=== PATIENT | female | born 1935 | race Caucasian/White ===

== ENCOUNTER 2017-10-22 21:06 | Inpatient (IN) | payer OTHER ==
[~2017-10-22] VITALS: Ht 152.4 cm; Wt 40.8 kg
[2017-10-22] MEDS ORDERED: PRAVASTATIN SOD10 MG (21:19)
== END 2017-11-09 16:56 | disposition home health service (06) | DRG 463 ==
LOC: ER 21:06 → MEDJ 10-23 12:22 → SEC-K 10-23 12:22 → MEDJ 10-23 14:19 → SURH 10-25 09:34 → MEDJ 10-25 14:51
PROC: CP1Z1ZZ Planar Nuclear Medicine Imaging of Musculoskeletal System, All using Technetium 99m (Tc-99m) (ICD-10-PCS; 2017-10-23)
PROC: 3E0F7GC Introduction of Other Therapeutic Substance into Respiratory Tract, Via Natural or Artificial Opening (ICD-10-PCS; 2017-10-24)
PROC: 0JBM0ZZ Excision of Left Upper Leg Subcutaneous Tissue and Fascia, Open Approach (ICD-10-PCS; principal; 2017-10-27)
PROC: 0JBL0ZZ Excision of Right Upper Leg Subcutaneous Tissue and Fascia, Open Approach (ICD-10-PCS; 2017-10-27)
PROC: CW1NLZZ Planar Nuclear Medicine Imaging of Whole Body using Gallium 67 (Ga-67) (ICD-10-PCS; 2017-10-30)
PROC: BW2GZZZ Computerized Tomography (CT Scan) of Pelvic Region (ICD-10-PCS; 2017-11-06)
DX: M86.152 Other acute osteomyelitis, left femur (principal); L89.214 Pressure ulcer of right hip, stage 4; L89.153 Pressure ulcer of sacral region, stage 3; L89.224 Pressure ulcer of left hip, stage 4; R78.81 Bacteremia; G30.8 Other Alzheimer's disease; F02.80 Dementia in other diseases classified elsewhere, unspecified severity, without behavioral disturbance, psychotic disturbance, mood disturbance, and anxiety; Z74.01 Bed confinement status; B96.4 Proteus (mirabilis) (morganii) as the cause of diseases classified elsewhere; B96.1 Klebsiella pneumoniae [K. pneumoniae] as the cause of diseases classified elsewhere; B95.2 Enterococcus as the cause of diseases classified elsewhere; B96.89 Other specified bacterial agents as the cause of diseases classified elsewhere; H91.8X3 Other specified hearing loss, bilateral; J37.0 Chronic laryngitis; J31.0 Chronic rhinitis; B95.7 Other staphylococcus as the cause of diseases classified elsewhere